=== PATIENT | male | born 1990 | race Hispanic/Latino ===

== ENCOUNTER 2023-01-20 09:25 | Emergency (ER) | payer SELFPAY ==
[2023-01-20 09:33] VITALS: BP 134/92
[2023-01-20 10:04] LABS: BASO% 0.4 % (0-3); EOS% 6.7 % (0-8); HEMATOCRIT 43.4 % (39.0-50.0); IMMATURE GRANULOCYTES 0.9 % (0.0-5.0); LYMPH% 24.1 % (15-41); MEAN CELL VOLUME 82.7 fL CALC (80.0-100.0); MEAN CORPUSCULAR HGB 26.7 pG CALC (26.0-32.0); MEAN CORPUSCULAR HGB CONC 32.3 g/dL CAL (32.0-36.0); NEUT# 7.16 thou/uL (1.82-7.42); NEUT% 60.9 % (42-76); RED BLOOD COUNT 5.25 mill/uL (4.70-6.10)
[2023-01-20 10:08] LABS: ALBUMIN 4.2 g/dL (3.2-5.0); ALKALINE PHOSPHATASE 89 u/l (38-126); ANION GAP 15 (6-22 (CALC)); BILIRUBIN, TOTAL 0.8 mg/dL (0.2-1.3); BUN 12 mg/dL (9-20); BUN/CREATININE RATIO 16 (12-20 (CALC)); CARBON DIOXIDE 26 mmol/l (22-30); CHLORIDE 103 mmol/l (95-108); CREATININE 0.7 mg/dL (0.7-1.3); GFR FOR AFR.AMER. > 60 ML/MIN (>=60 (CALC)); GFR OTHER RACES > 60 ML/MIN (>=60 (CALC)); SGOT/AST 35 u/l (17-59); SODIUM 138 mmol/l (137-146); TOTAL PROTEIN 7.5 g/dL (6.3-8.2)
[2023-01-20 10:57] VITALS: BP 134/92
== END 2023-01-20 11:06 | disposition home or self-care (01) | DRG 554 ==
LOC: ED 09:25
PROVIDERS: Emergency Medicine
DX: M10.09 Idiopathic gout, multiple sites (principal)

== ENCOUNTER 2023-05-01 09:25 | Emergency (ER) | payer SELFPAY ==
[~2023-05-01] VITALS: Ht 162.6 cm; Wt 79.4 kg
[~2023-05-01 09:25] MED LIST: CYCLOBENZAPRINE10 MG PO; ULTRAM50 MG PO
[2023-05-01 10:32] VITALS: BP 126/80
[2023-05-01] MEDS ORDERED: AMOX/K CLAV875 M1 PO (11:27)
[2023-05-01] MEDS ORDERED: NAPROXEN500 MG PO (11:27)
== END 2023-05-01 11:48 | disposition home or self-care (01) | DRG 153 ==
LOC: ED 09:25
DX: H66.92 Otitis media, unspecified, left ear (principal); M26.602 Left temporomandibular joint disorder, unspecified

== ENCOUNTER 2024-04-02 09:09 | Emergency (ER) | payer SELFPAY ==
[~2024-04-02] VITALS: Ht 162.6 cm; Wt 81.6 kg
[2024-04-02] VITALS (7 sets, daily range): BP systolic 120–132; BP diastolic 77–93
[~2024-04-02 09:09] MED LIST changes: +AMOX/K CLAV875 M1 PO; +NAPROXEN500 MG PO
[2024-04-02] MEDS ORDERED: KETOROLAC TROMETHAMINE 30 MG/ML SDV IM ONE (11:20)
[2024-04-02] MEDS ORDERED: METHOCARBAMOL 500 MG/TAB PO ONE (11:20)
[2024-04-02] MEDS ORDERED: MOTRIN400 MG/TAB PO (11:23)
[2024-04-02] MEDS ORDERED: TANLOR1000 MG PO (11:23)
== END 2024-04-02 11:47 | disposition home or self-care (01) | DRG 552 ==
LOC: ED 09:09
DX: M54.6 Pain in thoracic spine (principal)